=== PATIENT | male | born 1965 | race Caucasian/White ===

== ENCOUNTER 2022-01-11 12:19 | Observation (INO) | payer OTHER, SELFPAY ==
[2022-01-11] VITALS (9 sets, daily range): BP systolic 99–127; BP diastolic 59–79; PULSE 54–85; RESP 14–22; TEMP 36.6–36.9; O2SAT 96–98; BMI 23.1; BMI 19.9
--- NOTE | 2022-01-11 12:31 | ECG_ITS ---
[facility] Test Date: 2022-01-11 Pat Name: Ortiz Barton Department: Room: Gender: Male Historiographer: : 1965 Requested By: Surya Kaur Order Number: [id number] Avelina MD: Angely Collins M.D. Measurements Intervals [place] Rate: 54 P: 68 CT: 148 QRS: 78 QRSD: 85 T: 68 QT: 371 QTc: 355 Interpretive Statements SINUS BRADYCARDIA POSSIBLE LEFT ATRIAL ENLARGEMENT [-0.1mV P-WAVE IN V1/V2] No previous ECG available for comparison Electronically Signed On 01-11-2022 18:59:33 CDT by Angely Collins M.D. [id number]
--- NOTE | 2022-01-11 12:44 | XRR_ITS ---
PROCEDURE INFORMATION: Exam: XR Chest Exam date and time: 01/11/2022 12:59 PM Age: 56 years old Clinical indication: Angina; Patient HX: Left side cp with numbness/tingling; Additional info: Chest pain TECHNIQUE: Imaging protocol: Radiologic exam of the chest. Views: 1 view. Other technique: Frontal portable upright view of the chest. COMPARISON: No relevant prior studies available. FINDINGS: Tubes, catheters and devices: EKG leads are present overlying the chest. Lungs: Left basilar pulmonary subsegmental/partial atelectasis. The lungs are otherwise peripherally clear bilaterally. The pulmonary vasculature is normal. Pleural spaces: No pleural effusion. No pneumothorax. Heart/Mediastinum: The heart is normal in size and contour. Bones/joints: No acute abnormality identified. XR/XR chest 1V portable [id number] IMPRESSION: Left basilar pulmonary subsegmental/partial atelectasis.
--- NOTE | 2022-01-11 12:46 | ED_ITS ---
HPI - General Adult General: Chief complaint: Chest Pain Stated complaint: chest pain/ L side pain/numb Time Seen by Provider: 01/11/22 12:44 History of Present Illness: Patient is a 56-year-old male with a recent history of URI for 2 weeks, smoking and COPD who presents to the emergency room for complaints of chest pain for 2 weeks. Patient tells me that he follows with come to the emergency room for this chest pressure has been getting worse. Patient reports chest pressure that comes and goes throughout the day. Patient says is worse with exertion. Patient reports chest pressure associate with shortness of breath. Patient denies any pleuritic chest pain, sharp chest pain, runny nose or sore throat. Patient has intermittent cough since the URI from 2 weeks ago. Patient has been had intermittent loose stool. Patient denies any abdominal pain, complaints, leg swelling, recent travel or immobilization. Patient denies any family history of aneurysm. Denies any family members with cardiac diseases in their 40s or 50s. No history of VTE's. Denies any hemoptysi s. Onset:2 weeks ago Duration:2 eeks Location:home Severity:moderate Associated symptoms: Reports chest pain and dyspnea; Deny nausea, rash, palpitations or vomiting Review of Systems Const: Denies: fever(s) or chills Eyes: Denies: change in vision ENMT: Denies: mouth pain Card: Reports: chest pain and dyspnea on exertion; Denies: palpitations Resp: Reports: dyspnea and non-productive cough GI: Reports: other (+loose stool); Denies: abdominal pain, nausea, vomiting or diarrhea : Denies: dysuria Musc: Denies: extremity pain Skin/Breast: Denies: rash or new lesions Neuro: Denies: weakness in extremities Psych: Reports: other (Normal mood) Moreno/Lymph: Denies: easy bruising PFSH ED PFSH: Medical History COPD (chronic obstructive pulmonary disease) Social History Smoking and tobacco status: current every day smoker Alcohol intake: never Substance/Drug Use: never Physical Exam Const: COMMON NORMALS: alert HENMT: COMMON NORMALS: atraumatic HEAD & SCALP: atraumatic MOUTH: moist mucous membranes not abnormal Eye: COMMON NORMALS: EOMs intact bilaterally and conjunctivae normal CONJUNCTIVA: Yes conjunctivae normal Neck/C-Spine: COMMON NORMALS: full ROM and supple Resp: COMMON NORMALS: normal respiratory effort and clear to auscultation bilaterally AUSCULTATION: clear to auscultation bilaterally Cardio: COMMON NORMALS: regular rate RATE: regular rate OTHER: 2+ radial pulses b/l GI: COMMON NORMALS: Soft to palpation and non-tender PALPATION: Yes Soft to palpation OTHER: No focal TTP. NO guarding rebound, guarding, rigidity. No CVA tenderness to percussion. Neg Locke/Neg McBurney's point tenderness, no suprabupic tenderness to palpation. Extremity: COMMON NORMALS: full ROM OTHER: +No LE swelling b/l Neuro: SENSORIUM/ORIENTATION: Yes alert MOTOR EXAM: No Abnormal motor strength present and Other motor observations present (no focal motor deficits) Psych: COMMON NORMALS: speech normal SPEECH: Yes normal speech MOOD & AFFECT: Yes euthymic mood Course Vital Signs: Vital signs: Vital Signs Temperature 97.8 F 01/11/22 12:27 Pulse Rate 54 L 01/11/22 14:23 Respiratory Rate 20 H 01/11/22 14:23 Blood Pressure 106/70 01/11/22 14:23 Pulse Oximetry 97 01/11/22 14:23 Oxygen Delivery Me thod 01/11/22 14:23 [facility] - General Adult Medical Decision Making Patient is a 56-year-old male with a recent history of URI for 2 weeks, smoking and COPD who presents to the emergency room for complaints of chest pain for 2 weeks. On physical exam, patient is hemodynamically stable, 2+ radial pulses no other focal findings on physical exam. EKG is nonischemic. Troponin of 18 initially. Patient continues to have intermittent chest pain. Patient received aspirin in ER. Given worsening increased frequency of chest pain, I have offered admission patient agrees with inpatient stay. Disposition: admission Lab Data : 01/11/22 12:45 01/11/22 12:45 Radiology Impressions Chest X-Ray 01/11/22 12:44 IMPRESSION: Left basilar pulmonary subsegmental/partial atelectasis. Laboratory Results WBC 7.6 10^3/uL (4.0-10.0) 01/11/22 12:45 RBC 4.94 10^6/uL (4.1-5.3) 01/11/22 12:45 Hgb 15.2 g/dL (11.7-16.6) 01/11/22 12:45 Hct 43.1 % (42.0-52.0) 01/11/22 12:45 MCV 87.2 fl (80-94) 01/11/22 12:45 MCH 30.8 pg (28.0-34.0) 01/11/22 12:45 MCHC 35.3 g/dL (30.0-36.0) 01/11/22 12:45 RDW 12.1 % (12.1-15.1) 01/11/22 12:45 Plt Count 297 10^3/cmm (130-400) 01/11/22 12:45 MPV 9.0 fL (7.4-10.4) 01/11/22 12:45 Neut % (Auto) 65.6 % 01/11/22 12:45 Lymph % (Auto) 27.2 % 01/11/22 12:45 [place] % (Auto) 5.7 % 01/11/22 12:45 Eos % (Auto) 0.8 % 01/11/22 12:45 Baso % (Auto) 0.4 % 01/11/22 12:45 Neut # (Auto) 4.99 10^3/uL (1.8-7.7) 01/11/22 12:45 Lymph # (Auto) 2.1 10^3/uL (0.8-4.8) 01/11/22 12:45 [place] # (Auto) 0.4 10^3/uL (0.2-0.9) 01/11/22 12:45 Eos # (Auto) 0.1 10^3/uL (0.0-0.8) 01/11/22 12:45 Baso # (Auto) 0.0 10^3/uL (0.0-0.1) 01/11/22 12:45 Nucleated RBC % (auto) 0 % 01/11/22 12:45 Nucleated RBCs # 0.0 /100WBC 01/11/22 12:45 Sodium 143 mmol/L (136-145) 01/11/22 12:45 Potassium 4.6 mmol/L (3.5-5.1) 01/11/22 12:45 Chloride 107 mmol/L (98-107) 01/11/22 12:45 Carbon Dioxide 26 mmol/L (22-29) 01/11/22 12:45 Anion Gap 14.6 (5-19) 01/11/22 12:45 BUN 14 mg/dL (6-20) 01/11/22 12:45 Creatinine 0.9 mg/dL (0.7-1.2) 01/11/22 12:45 GFR Calculation 86.7 mL/min (90-130) L 01/11/22 12:45 Glucose 90 mg/dL (65-115) 01/11/22 12:45 Calculated Osmolality 296 mOsm/kg (285-295) H 01/11/22 12:45 Calcium 9.2 mg/dL (8.5-10.5) 01/11/22 12:45 Troponin T Baseline 19 ng/L (0-15) H 01/11/22 12:45 Imaging Data Other Imaging: Radiologist's impression: [facility] [address] XRay Report Signed Patient: Ortiz Barton Unit #: [id number] : 1965 Age/Sex: 56 / M ADM Date: 01/11/22 Loc: ER Room/Bed: Attending Dr: Ordering Provider/Ordering MD: Lary Keller MD Date of Service: 01/11/22 Procedure(s): XR chest 1V portable [id number] Accession Number(s): [id number] Report Number: [id number] PROCEDURE INFORMATION: Exam: XR Chest Exam date and time: 01/11/2022 12:59 PM Age: 56 years old Clinical indication: Angina; Patient HX: Left side cp with numbness/tingling; Additional info: Chest pain TECHNIQUE: Imaging protocol: Radiologic exam of the chest. Views: 1 view. Other technique: Frontal portable upright view of the chest. COMPARISON: No relevant prior studies available. FINDINGS: Tubes, catheters and devices: EKG leads are present overlying the chest. Lungs: Left basilar pulmonary subsegmental/partial atelectasis. The lungs are otherwise peripherally clear bilaterally. The pulmonary vasculature is normal. Pleural spaces:? No pleural effusion. No pneumothorax. Heart/Mediastinum: The heart is normal in size and contour. Bones/joints: No acute abnormality identified.? XR/XR chest 1V portable [id number] IMPRESSION: Left basilar pulmonary subsegmental/partial atelectasis. ? Dictated By: Josafat Arita MD Signed By: Josafat Arita MD Signed Date/Time: 01/11/22 1412 DD/ 1259 Discharge Plan Discharge Patient Disposition: Admitted As Inpatient Clinical Impression: Chest pain Condition: Stable Coding Level of Care Code ED Welding Process Specialist for Chg Fwd Exam Comprehensive
[2022-01-11 13:00] LABS: Basophils % 0.4 %; Eosinophils # 0.1 10^3/uL (0.0-0.8); Eosinophils % 0.8 %; Hematocrit 43.1 % (42.0-52.0); Hemoglobin 15.2 g/dL (11.7-16.6); Lymphocytes # 2.1 10^3/uL (0.8-4.8); Lymphocytes % 27.2 %; Mean Corpuscular HGB Conc 35.3 g/dL (30.0-36.0); Mean Corpuscular Hemoglobin 30.8 pg (28.0-34.0); Mean Corpuscular Volume 87.2 fl (80-94); Monocytes # 0.4 10^3/uL (0.2-0.9); Monocytes % 5.7 %; Neutrophils # 4.99 10^3/uL (1.8-7.7); Neutrophils % 65.6 %; Nucleated Red Blood Cells % 0 %; Platelet Count 297 10^3/cmm (130-400); Red Blood Count 4.94 10^6/uL (4.1-5.3); Red Cell Distribution Width 12.1 % (12.1-15.1); White Blood Count 7.6 10^3/uL (4.0-10.0)
[2022-01-11 13:15] LABS: Anion Gap 14.6 (5-19); Blood Urea Nitrogen 14 mg/dL (6-20); Calcium 9.2 mg/dL (8.5-10.5); Carbon Dioxide 26 mmol/L (22-29); Chloride 107 mmol/L (98-107); Glomerular Filtration Rate 86.7 mL/min (90-130); Glucose 90 mg/dL (65-115); Osmolality Calculated 296 mOsm/kg (285-295); Potassium 4.6 mmol/L (3.5-5.1); Sodium 143 mmol/L (136-145)
[2022-01-11 13:17] LABS: Troponin(5th) Baseline 19 ng/L (0-15)
[2022-01-11] MEDS: aspirin 325 mg Tablet PO (13:36)
--- NOTE | 2022-01-11 14:45 | ECG_ITS ---
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 Measurements Intervals [place] Rate: 46 P: 67 NV: 159 QRS: 76 QRSD: 89 T: 72 QT: 403 QTc: 356 Interpretive Statements SINUS BRADYCARDIA Compared to ECG 01/11/2022 12:34:34 No significant changes Electronically Signed On 01-11-2022 19:03:22 CDT by Angely Collins M.D. [id number]
--- NOTE | 2022-01-11 15:37 | P.HP_ITS ---
Providers/Chief Complaint Primary Care Provider: Kehinde Quiroz MD Chief Complaint: chest pain/ L side pain/numb History of Present Illness Pleasant 56-year-old gentleman with smoking history, COPD, otherwise previously active, had a brief illness about 2 weeks ago, feeling extremely exhausted, malaise, poor appetite, since then has been having exertional intolerance, intermittent chest pressure, with activity, also reports intermittent episodes of sharp chest pain although those may be related to movement or turning in bed. 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 He reports today he was out planning to mow grass, but had to sit down twice with worsened symptoms. He denies known history of ME or CAD. Reports that he also consumes occasional palpitations which make him feel off for short period, then resolve. In ER noted with sinus bradycardia, 50s, occasionally high 40s. He is not aware of having history of bradycardia. EKG with sinus bradycardia 46 bpm. Troponin with minimal elevation. Chest x-ray with left basilar subsegmenta/partial atelectasis. He also reports in the last 2 weeks he lost weight, not entirely clear how much, states up to 20 pounds coming down to 170, she states from 190, but he states did not weigh that much. Review of Systems Const: Reports: change in appetite (Poor appetite after episode of illness 2 weeks ago, resolved, currently carlitos); Denies: fever(s), chills, body aches or malaise Eyes: Denies: change in vision, eye discomfort or eye redness ENMT: Denies: throat pain, oral sores or ear or mastoid pain Card: Reports: chest pain, palpitations, dyspnea on exertion and other (Chest pressure); Denies: edema or swelling of feet/ankles Resp: Denies: dyspnea, productive cough, change in phlegm color or hemoptysis GI: Denies: abdominal pain, nausea, vomiting, diarrhea, constipation, hematochezia or melena : Denies: flank pain, difficulty urinating, urinary frequency or hematuria Musc: Denies: back pain, joint swelling or joint redness Skin/Breast: Denies: rash or new lesions Neuro: Denies: headache(s), numbness in extremities, weakness in extremities, dizziness, confusion or seizure-like activity Endo: Denies: polyuria or polydipsia Moreno/Lymph: Denies: easy bleeding or tender lymph nodes All/Imm: Denies: urticaria or tongue swelling Medications/Allergies Home Medications Medication Instructions Recorded Confirmed Last Taken Type ibuprofen 200 mg tablet 600 mg PO Q6H PRN Pain 01/11/22 01/11/22 01/11/22 08:00 History Allergies Allergy/AdvReac Type Severity Reaction Status Date / Time No Known Allergies Allergy Verified 01/11/22 12:58 PFSH Acute PFSH: Medical History COPD (chronic obstructive pulmonary disease) Smoking addiction Family History Other Cardiovascular disease Social History Smoking and tobacco status: current every day smoker Alcohol intake: never Substance/Drug Use: never Lives independently: Yes Current occupational status: employed Vitals/I&O/Wt Last Vital Signs Temp 97.8 F 01/11/22 12:27 Pulse 54 L 01/11/22 14:23 Resp 20 H 01/11/22 14:23 BP 106/70 01/11/22 14:23 Pulse Ox 97 01/11/22 14:23 O2 Del Method 01/11/22 14:23 Weight last 48 hrs Weight 77.564 kg Physical Exam Narrative: Family at bedside Const: COMMON NORMALS: patient oriented x3 and alert GENERAL APPEARANCE: cooperative ORIENTATION/CONSCIOUSNESS: Yes awake HENMT: COMMON NORMALS: oropharynx normal Neck/C-Spine: COMMON NORMALS: no JVD Resp: COMMON NORMALS: normal respiratory effort and clear to auscultation bilaterally AUSCULTATION: clear to auscultation bilaterally Cardio: COMMON NORMALS: no JVD, regular rhythm, S1 normal heart sound present, S2 normal heart sound present and No murmurs present (Cardio) RATE: bradycardic RHYTHM: regular rhythm HEART SOUNDS: S1 normal heart sound present and S2 normal heart sound present GI: COMMON NORMALS: Normal to inspection, nondistended, normoactive bowel sounds present, Soft to palpation and non-tender PALPATION: Yes Soft to palpation Extremity: COMMON NORMALS: no joint enlargement and no pedal edema Neuro: COMMON NORMALS: patient oriented x3 and moves all extremities SENSORIUM/ORIENTATION: Yes alert Skin: COMMON NORMALS: no rashes or lesions noted GENERAL SKIN EXAM: no rashes or lesions noted Data : 01/11/22 12:45 01/11/22 12:45 A&P Assessment and plan (1) Chest pressure: Exertional intolerance, episodes of chest pressure, today to sit down several times while outside trying to mow his lawn. Chronic smoking history. COPD. Recent episode of illness about 2 weeks ago he suspects may have been COVID-19, but did not get tested. Will check D-dimer. Assess TTE. With sinus bradycardia, monitor on telemetry. Assess stress test in the morning. Status: Acute (2) Dyspnea on exertion: Exertional intolerance. Gets recurrent symptoms of chest pressure, dyspnea. Would benefit from formal PFT after discharge. Would benefit from quitting smoking. Check orthostatics. Check D-dimer. TTE. Status: Acute (3) Sinus bradycardia: Check TSH. He is not aware of history of bradycardia. With exertional intolerance, Monitor on telemetry while observed here. Has intermittent palpitations during which she feels unwell. 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 Status: Acute (4) Weight loss: Not really clear what the weight loss is, but appears he had weight loss recently, he thinks possibly due to decreased appetite after recent acute illness about 2 weeks earlier. thinks it may have been up to 20 pounds, although he disagrees. Appetite has now resumed. Will need follow-up with regards to this, if weight loss persists will need additional work-up. With smoking history in case not requiring further imaging here, consider if candidate for CT chest after discharge. Says does not have primary provider, needs for continued evaluation in case of persistent weight loss, otherwise to complete the usual age-appropriate screening. Status: Acute Plan Smoking addiction: Discussed with him for 3 minutes. He understands he would benefit from quitting. Continue to encourage cessation. Nicotine replacement as needed. Attestations Medical Necessity Statement*: Place in observation for additional assessment management of chest pressure, exertional intolerance, palpitations. Coding Level of Care Code Acute Grape Grower for Kailey Fuentes Diagnoses Chest pressure R07.89 Dyspnea on exertion R06.09 Sinus bradycardia R00.1 Weight loss R63.4
[2022-01-11 15:49] LABS: D Dimer <= 0.27 ug/mIFEU (0-0.59)
[2022-01-11 16:27] LABS: Thyroid Stimulating Hormone 2.52 uIU/mL (0.27-4.20)
--- NOTE | 2022-01-11 17:52 | USCV_ITS ---
Ortiz Barton Age: 56 Gender: M : 1965 Exam Date: 01/11/2022 21:00 Ordering Phys: Cory De La Vega MD Technologist: SABRINA [place] [facility] [place]: Chest pressrue, sinus bradycardia BP: 118 / 79 HR: 58 Rhythm: Sinus Technical Quality: Adequate MEASUREMENTS (Male / Female) Normal Values 2D ECHO LV Diastolic Diameter PLAX 4.4 cm 4.2 - 5.9 / 3.9 - 5.3 cm LV Systolic Diameter PLAX 3.1 cm IVS Diastolic Thickness 1.0 cm 0.6 - 1.0 / 0.6 - 0.9 cm IVS Systolic Thickness 1.4 cm LVPW Diastolic Thickness 1.1 cm 0.6 - 1.0 / 0.6 - 0.9 cm LVPW Systolic Thickness 1.6 cm LVOT Diameter 1.8 cm LV Ejection Fraction 2D Teich 55.1 % LV Ejection Fraction MOD 2C 64.6 % LV Ejection Fraction 2C AL 63.8 % LA Diameter 3.3 cm LA Width 3.4 cm LA Height 4.3 cm RA Width 3.3 cm RA Height 4.4 cm Aorta at Sinotubular Diameter 3.2 cm IVC Diameter 1.5 cm M-MODE Aortic Annulus Diameter 3.5 cm LA Ao Ratio MM 1.0 MV E Point Septal Separation 0.5 cm DOPPLER AV Peak Velocity 136.0 cm/s LVOT Peak Velocity 107.0 cm/s AV Area Cont Eq vti 1.9 cm squared AV Area Cont Eq pk 2.1 cm squared MV Area PHT 2.5 cm squared Mitral E to A Ratio 1.3 MV E' Velocity 54.0 cm/s Mitral E to MV E' Ratio 8.6 Mitral E to LV E' Lateral Ratio 8.2 Mitral E to LV E' Septal Ratio 9.2 TR Peak Velocity 218.0 cm/s TR Peak Gradient 19.0 mmHg TV Peak E Velocity 45.0 cm/s Right Atrial Pressure 5.0 mmHg Pulmonary Artery Systolic Pressu 24.0 mmHg PV Peak Velocity 104.0 cm/s RV Acceleration Time 0.1 s RV Ejection Time 0.4 s RV AcT/ET 0.2 FINDINGS Left Ventricle Normal left ventricular size, systolic function and wall thickness, with no regional wall motion abnormalities. Left ventricular ejection fraction is estimated at 65 %. Normal diastolic function. Right Ventricle Normal right ventricular size and systolic function. RVSP could not be calculated due to incomplete tricuspid regurgitation velocity profile. Right Atrium Normal right atrial size. Right atrial pressure estimated at 3 mmHg. Left Atrium Normal left atrial size. Mitral Valve Mildly thickened mitral valve. No mitral valve stenosis. Trace mitral valve regurgitation. Aortic Valve Structurally normal trileaflet aortic valve. No aortic valve stenosis. No aortic valve regurgitation. Tricuspid Valve Structurally normal tricuspid valve. No tricuspid valve stenosis. Trace to mild tricuspid valve regurgitation. Pulmonic Valve Structurally normal pulmonic valve. No pulmonary valve stenosis. No pulmonary valve regurgitation. Pericardium No pericardial effusion. Aorta Normal size aortic root and proximal ascending aorta. IVC Normal IVC dimension with >50% respiratory change of the inferior vena cava. CONCLUSIONS 1. Normal left ventricular size, systolic function and wall thickness, with no regional wall motion abnormalities. Left ventricular ejection fraction is estimated at 65 %. Normal diastolic function. 2. Normal right ventricular size and systolic function. 3. Trace to mild tricuspid valve regurgitation. 4. No prior similar studies to compare. Angely Collins MD (Electronically Signed) Final Date: 12 January 2022 13:14 S
[2022-01-11] MEDS: enoxaparin 40 mg/0.4 mL Syringe SUBCUT (18:14)
--- NOTE | 2022-01-11 18:17 | ECG_ITS ---
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 Measurements Intervals [place] Rate: 49 P: 58 SD: 151 QRS: 83 QRSD: 87 T: 91 QT: 394 QTc: 357 Interpretive Statements SINUS BRADYCARDIA Compared to ECG 01/11/2022 14:49:41 No significant changes Electronically Signed On 01-11-2022 19:02:54 CDT by Angely Collins M.D. [id number]
[2022-01-11 19:42] LABS: Troponin 5 6HR Delta 0 ng/L (0-12)
[2022-01-12] VITALS (7 sets, daily range): BP systolic 99–115; BP diastolic 61–72; PULSE 51–73; RESP 16; TEMP 36.7–36.8; O2SAT 91–97
--- NOTE | 2022-01-12 | ECG_ITS ---
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 Interpretive Statements NAME OF STUDY: LEXISCAN SESTAMIBI STRESS TEST INDICATION: [CHEST PRESSURE, EXERTIONAL INTOLERANCE, COPD, ] Procedure: At the baseline, the blood pressure was 109/83 mmHg with a heart rate of 71 bpm. The electrocardiogram showed normal sinus rhythm, normal axis with normal ST and T's. The Lexiscan was infused over a period of 20 seconds. A total of 0.4 mg of Lexiscan was infused. The stress phase was continued for a total of 5 minutes. Heart rate was at the end of stress phase was 83 bpm and a blood pressure of 115/66 mmHg. The EKG at the peak infusion revealed since normal sinus rhythm with no significant ST-T wave changes. Sestamibi was injected 20 seconds after the Lexiscan infusion. Blood pressure at the end of recovery phase was 128/64 mmHg with a heart rate of 66 bpm. Conclusion: 1. Normal EKG response to Lexiscan infusion 2. No Lexiscan induced chest pain or cardiac arrhythmia. 3. Normal blood pressure and heart rate response. 4. Sestamibi/sestamibi perfusion scan pending; see separate report. Electronically Signed On 01-31-2022 21:17:07 CDT by Ky Mena M.D. [id number]
[2022-01-12 04:55] LABS: Anion Gap 12.1 (5-19); Blood Urea Nitrogen 16 mg/dL (6-20); Calcium 8.6 mg/dL (8.5-10.5); Carbon Dioxide 25 mmol/L (22-29); Chloride 109 mmol/L (98-107); Glomerular Filtration Rate 99.3 mL/min (90-130); Glucose 83 mg/dL (65-115); Osmolality Calculated 294 mOsm/kg (285-295); Potassium 4.1 mmol/L (3.5-5.1); Sodium 142 mmol/L (136-145)
[2022-01-12] MEDS: regadenoson 0.4 Mg/5 ml Syringe IVP (07:28)
--- NOTE | 2022-01-12 08:13 | PC.NURSE ---
Stress Test Pt was taken downstairs for stress test in wheelchair around 0650.
[2022-01-12] MEDS: acetaminophen 325 mg Tablet 650 MG PO (10:23)
--- NOTE | 2022-01-12 10:43 | P.DS_ITS ---
Discharge Providers Date of Admission: 01/11/22 14:33 Date of Discharge: January 12, 2022 Attending Provider at Admission: Cory De La Vega Attending Provider at Discharge: Shady Blas MD Primary Care Provider: Kehinde Quiroz MD Diagnoses at Discharge Discharge Diagnosis (1) Chest pressure: Status: Acute (2) Dyspnea on exertion: Status: Acute (3) Sinus bradycardia: Status: Acute (4) Weight loss: Status: Acute Reason for Visit Reason for Visit: chest pain/ L side pain/numb Hospital Course Hospital Course Ortiz is a 56-year-old white male who presented to the hospital with complaints of chest discomfort. Troponin did not show a significant trend. EKG demonstrated sinus bradycardia but no concerning ischemic changes. TSH was checked and normal. Dimer was not significantly elevated. He underwent a nuclear stress test on January 12, demonstrating a scar in the inferior wall but no evidence of reversible ischemia. I discussed limitations of the test, concern of scar. We will place him on aspirin, statin and have him follow-up with cardiology. Patient was able to ask questions, and agreed with plan. We will also be setting up with a primary care provider. He was encouraged not to smoke. He might benefit from pulmonary function test in the future. He also has lost some weight recently, and if this persists further work-up for this would be appropriate as well. Echocardiogram was also performed, but pending at time of discharge. Preliminary appeared largely normal. Physical Exam Narrative: General exam is no apparent distress Neck is supple no lymphadenopathy or thyromegaly Cardiovascular regular rate and rhythm without murmur Lungs bilateral expiratory wheezes. No crackles Abdomen is soft nontender positive bowel sounds Extremities no cyanosis clubbing or edema. Discharge Data Studies Completed and Pending Completed Studies During Hospitalization Category Date Time Status Cardiac Stress Test MIBI [Sestamibi Stress Test Request Exams 01/12/22 07:00 Draft ] Routine XR chest 1V portable [id number] Stat Exams 01/11/22 12:44 Completed NM balwinder perf SPECT r/s* [id number] Routine Nuc Med 01/12/22 17:52 Completed Pending at discharge Category Date Time Status Basic Metabolic Panel AM LABS Lab 01/13/22 04:00 Ordered Basic Metabolic Panel AM LABS Lab 01/14/22 04:00 Ordered Lipid Panel Routine Lab 01/12/22 03:50 Received CV. echo complete* [id number] Routine Ultrasound 01/11/22 17:52 Taken Radiology Impressions Chest X-Ray 01/11/22 12:44 IMPRESSION: Left basilar pulmonary subsegmental/partial atelectasis. Laboratory Results WBC 7.6 10^3/uL (4.0-10.0) 01/11/22 12:45 RBC 4.94 10^6/uL (4.1-5.3) 01/11/22 12:45 Hgb 15.2 g/dL (11.7-16.6) 01/11/22 12:45 Hct 43.1 % (42.0-52.0) 01/11/22 12:45 MCV 87.2 fl (80-94) 01/11/22 12:45 MCH 30.8 pg (28.0-34.0) 01/11/22 12:45 MCHC 35.3 g/dL (30.0-36.0) 01/11/22 12:45 RDW 12.1 % (12.1-15.1) 01/11/22 12:45 Plt Count 297 10^3/cmm (130-400) 01/11/22 12:45 MPV 9.0 fL (7.4-10.4) 01/11/22 12:45 Neut % (Auto) 65.6 % 01/11/22 12:45 Lymph % (Auto) 27.2 % 01/11/22 12:45 [place] % (Auto) 5.7 % 01/11/22 12:45 Eos % (Auto) 0.8 % 01/11/22 12:45 Baso % (Auto) 0.4 % 01/11/22 12:45 Neut # (Auto) 4.99 10^3/uL (1.8-7.7) 01/11/22 12:45 Lymph # (Auto) 2.1 10^3/uL (0.8-4.8) 01/11/22 12:45 [place] # (Auto) 0.4 10^3/uL (0.2-0.9) 01/11/22 12:45 Eos # (Auto) 0.1 10^3/uL (0.0-0.8) 01/11/22 12:45 Baso # (Auto) 0.0 10^3/uL (0.0-0.1) 01/11/22 12:45 Nucleated RBC % (auto) 0 % 01/11/22 12:45 Nucleated RBCs # 0.0 /100WBC 01/11/22 12:45 D-Dimer <= 0.27 ug/mIFEU (0-0.59) 01/11/22 12:45 Sodium 142 mmol/L (136-145) 01/12/22 03:50 Potassium 4.1 mmol/L (3.5-5.1) 01/12/22 03:50 Chloride 109 mmol/L (98-107) H 01/12/22 03:50 Carbon Dioxide 25 mmol/L (22-29) 01/12/22 03:50 Anion Gap 12.1 (5-19) 01/12/22 03:50 BUN 16 mg/dL (6-20) 01/12/22 03:50 Creatinine 0.8 mg/dL (0.7-1.2) 01/12/22 03:50 GFR Calculation 99.3 mL/min (90-130) 01/12/22 03:50 Glucose 83 mg/dL (65-115) 01/12/22 03:50 Calculated Osmolality 294 mOsm/kg (285-295) 01/12/22 03:50 Calcium 8.6 mg/dL (8.5-10.5) 01/12/22 03:50 Troponin T Baseline 19 ng/L (0-15) H 01/11/22 12:45 Troponin T 120 Minute 6.00 ng/L (0-15) 01/11/22 14:50 Delta Troponin T -13.00 ABS# (0-10) L 01/11/22 14:50 Troponin T Hi Sens 6Hr 6.00 ng/L (0-15) 01/11/22 19:00 Troponin T Hi Sens 6Hr Delta 0 ng/L (0-12) 01/11/22 19:00 TSH 2.52 uIU/mL (0.27-4.20) 01/11/22 14:50 Vitals Last Vital Signs Temp 98.3 F 01/12/22 04:00 Pulse 73 01/12/22 08:09 Resp 16 01/12/22 04:00 BP 107/65 01/12/22 08:09 Pulse Ox 91 01/12/22 04:00 O2 Del Method 01/12/22 01:37 Discharge Plan Discharge Patient Disposition: Home Condition: Stable Prescriptions: New aspirin 325 mg tablet,delayed release (DR/EC) 325 mg PO DAILY Qty: 30 0RF atorvastatin [Lipitor] 20 mg tablet 20 mg PO DAILY Qty: 30 0RF Discontinued ibuprofen 200 mg Tablet 600 mg PO Q6H PRN (Reason: Pain) Discharge Orders: Discharge Order (Routine); Ordered 01/12/22 Ordered By: Shady Blas Referrals: Ky Mena M.D [Physician] - 1 month (Or first available licensed physical therapy assistant 3 to 4 weeks) Kehinde Quiroz MD [Primary Care Provider] - 4-7 days Angely Collins MD [Physician] - Discharge Diet: Cardiac Discharge Activity: Increase activity as tolerated Patient Instructions: Bradycardia, Aspirin (By mouth), Atorvastatin (By mouth), Chest Pain (DC), Chest Pain Stoplight, Opioid Safety Activity Restrictions/Additional Instructions: Take all medicine as prescribed Follow-up with cardiology, primary care provider Stop smoking You may benefit from pulmonary function tests as an outpatient Discharge Attestations Time Spent in Discharge Care*: greater than 30 min Quality Metrics Clinical Quality Measures [ No reported AMI, CVA or VTE this stay] Coding Level of Care Code Acute Chg FW DC note Diagnoses Chest pressure R07.89 Dyspnea on exertion R06.09 Sinus bradycardia R00.1 Weight loss R63.4
[2022-01-12 10:47] LABS: Chol HDL Ratio 5.31 mg/dL (1.0-5.00); Cholesterol 170 mg/dL (0-200); HDL Cholesterol 32 mg/dL (60-100); LDL Cholesterol Calculated 100 mg/dL (50-129); LDL HDL Ratio 3.13 RATIO (0.00-3.22); Triglycerides 192 mg/dL (0-150)
--- NOTE | 2022-01-12 17:52 | NMCV_ITS ---
NM balwinder perf SPECT r/s* [id number] Ortiz Barton Age: 56 Gender: M : 1965 Exam Date: 01/12/2022 17:52 Ordering Phys: Cory De La Vega MD Technologist: LIA Espitia Exam Location: [facility] Indications: CHEST PAIN STRESS TEST Please see separate stress test report in [facility] for full findings IMAGE PROTOCOL Rest/Stress 1 Lexiscan Day Radiopharmaceutical Dose (mCi) Administration Site Administered by Rest: Tc-99m 10.7 IV LIA Nicholas Sestamibi Stress:Tc-99m 32.8 IV LIA Nicholas Sestamidarlyn Rest: 12-Jan-2022 60 Discovery 630 Stress: 12-Jan-2022 30 Discovery 630 0.4mg Lexiscan. Images obtained in supine and prone position. SPECT RESULTS Technical Quality: Excellent Raw Data Analysis: Normal Image Corrections: No attenuation or motion correction applied Summed Stress Score: 1 Summed Rest Score: 5 Summed Difference Score: 0 PERFUSION FINDINGS There is small in size, fixed perfusion defect in inferior wall. This is consistent with prior infarct. No evidence of ischemia. FUNCTIONAL RESULTS (calculated via Gated SPECT) Stress Image LV EF (%): 66 Stress EDV (mL):132 TID: 1.02 Stress ESV (mL):45 FUNCTIONAL FINDINGS: There is normal left ventricular systolic function. IMPRESSIONS 1. 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 No evidence of ischemia. 2. LV systolic function is normal. Ky Mena MD (Electronically Signed) Final Date: 12 January 2022 10:02 S
--- NOTE | 2022-01-20 10:02 | DCPLANNER ---
late entry - manager of case had message to speak with patient about getting established with a primary care physician. international trade manager unable to speak with patient at this time.
== END 2022-01-12 11:53 | disposition home or self-care (01) ==
LOC: ER 13:19 → MEDSURG 15:42
PROVIDERS: Admitting Provider Internal Medicine; Emergency Provider Emergency Medicine; PCP Family Medicine; Visit Provider Internal Medicine
DX: R07.89 Other chest pain (principal); R06.00 Dyspnea, unspecified; J44.9 Chronic obstructive pulmonary disease, unspecified; R00.1 Bradycardia, unspecified; R63.4 Abnormal weight loss; Z68.1 Body mass index [BMI] 19.9 or less, adult; F17.200 Nicotine dependence, unspecified, uncomplicated
CPT/HCPCS: 36415; 71045; 78452; 80048; 80061; 84443; 84484; 85025; 85378; 93005; 93017; 93306; 96372; 99285; A9500; G0378; J1650; J2785